=== PATIENT | female | born 1955 | race Caucasian/White ===

== ENCOUNTER → 2019-12-30 | Emergency (ER) | payer MEDICAID, OTHER ==
[~2019-12-30] VITALS: Ht 167.6 cm; Wt 59.0 kg
[~2019-12-30] MED LIST: MORPHINE SULF INJ 2 MG/ML SYRINGE 1ML IV ONE; ONDANSETRON HCL 4 MG/2 ML VIAL IV ONE
[2019-12-30 17:04] LABS: Basophils # (auto) 0.1 10 ^3/uL (0-0.2); Basophils % (auto) 0.5 % (0.0-2.0); Eosinophils # (auto) 0.1 10 ^3/uL (0-0.8); Hematocrit 41.5 % (36.0-46.0); Hemoglobin 13.8 g/dL (12.2-16.2); Lymphocytes # (auto) 1.1 10 ^3/uL (0.4-5.4); Lymphocytes % (auto) 10.9 % (10.0-50.0); Mean Corpuscular Hemoglobin 31.5 pg (28.0-32.0); Mean Corpuscular Hgb Conc. 33.3 g/dL (32.0-36.0); Mean Corpuscular Volume 94.7 fL (80.0-100.0); Monocytes # (auto) 0.5 10 ^3/uL (0-1.3); Monocytes % (auto) 4.9 % (0.0-12.0); Neutrophils # (auto) 8.2 10 ^3/uL (1.6-8.6); Neutrophils % (auto) 82.7 % (37.0-80.0); Platelet Count (auto) 212 10^3/uL (140-450); Red Blood Cells 4.39 10^6/uL (4.0-5.20); White Blood Cell 9.9 10^3/uL (4.4-10.8)
[2019-12-30 17:22] LABS: Alanine Aminotransferase 54 U/L (13-56); Albumin 3.2 g/dL (3.4-5.0); Amylase 30 U/L (25-115); Anion Gap 12 (5-15); Aspartate Aminotransferase 65 U/L (15-37); Blood Urea Nitrogen 16 mg/dL (7-18); Calcium 8.6 mg/dL (8.5-10.1); Carbon Dioxide 22 mmol/L (21-32); Chloride 105 mmol/L (98-107); GFR African American 93 mL/min; GFR Non-African American 77 mL/min; Glucose 147 mg/dL (74-106); Lipase 54 U/L (73-393); Magnesium 1.1 mg/dL (1.6-2.6); Potassium 3.9 mmol/L (3.5-5.1); Sodium 139 mmol/L (136-145)
[2019-12-30 17:28] LABS: Alkaline Phosphatase 106 U/L (45-117); Bilirubin, Total 0.7 mg/dL (0.2-1.0); Total Protein 7.2 g/dL (6.4-8.2)
[2019-12-30 19:02] LABS: Urine Bacteria NONE SEEN /hpf (None Seen); Urine Blood Negative /uL (Negative); Urine Mucus FEW (None Seen); Urine Specific Gravity 1.032 (1.001-1.035); Urine WBC <1 /hpf (0 - 5)
[2019-12-30 20:00] VITALS: BP 112/62
== END | disposition home or self-care (01) ==
LOC: EDUNIT# 16:09 → ER 16:09 → EDBD 16:09
DX: K56.7 Ileus, unspecified (principal); E11.9 Type 2 diabetes mellitus without complications; E78.5 Hyperlipidemia, unspecified; E07.9 Disorder of thyroid, unspecified; Z88.1 Allergy status to other antibiotic agents; Z88.8 Allergy status to other drugs, medicaments and biological substances
CPT/HCPCS: 36415; 74176; 80053; 81001; 82150; 83690; 83735; 84484; 85025; 93005; 96374; 96375; 99285; J2270; J2405

== ENCOUNTER 2023-11-02 12:56 | Emergency (ER) | payer MEDICAID ==
[~2023-11-02] VITALS: Ht 157.5 cm; Wt 63.6 kg
[2023-11-02 13:08] VITALS: BP 133/78; PULSE 88; RESP 18; O2SAT 97
== END 2023-11-02 15:41 | disposition left against medical advice (07) ==
LOC: ER 12:56 → EDUNIT# 12:56 → EDBD 12:56 → ER 14:39
DX: G40.909 Epilepsy, unspecified, not intractable, without status epilepticus (principal); Z53.21 Procedure and treatment not carried out due to patient leaving prior to being seen by health care provider
CPT/HCPCS: 93005

== ENCOUNTER 2024-08-05 21:48 | Emergency (ER) | payer OTHER, MEDICAID ==
[~2024-08-05] VITALS: Ht 165.1 cm; Wt 55.2 kg
--- NOTE | 2024-08-05 22:16 | ED.PDOC ---
GI ASSESSMENT HPI Comments 69y F who presents to the ED for chief complaints of pain, nausea and vomiting. Pt states she has been having nausea and vomiting for the past 2 days. Pt states she had surgery on L shoulder 2 days prior and states after being discharged, she has been having increasing nausea and vomiting since with associated generalized pain by her L shoulder. Pt states she was given pain medications after surgery but no medications for her nausea or vomiting. Pt in the ED, otherwise denies any other symptoms. Pt denies any other symptoms at this time. Patient has a multitude of comorbidities including metastatic cancer concerns and metabolic issues. Chief Complaint: Abdominal Pain Time Seen by MD: 22:15 Primary Care Provider: STEPHANI Reviewed Notes: Nurses Notes, Medications, Allergies Allergies: Coded Allergies: Ciprofloxacin (Verified Allergy, Mild, 12/30/19) Diazepam (Verified Allergy, Mild, 12/30/19) Information Source: Patient Mode of Arrival: Ambulatory Brought in by: self Timing: Days Duration: Since onset Prehospital treatment: Pain Meds Quality: Aching Vomitus: Bilious, Food Particles, Soft, Watery Severity: Moderate Recent: Other (Recent left shoulder surgery) Recent Hx of: None Associated sign and symptoms: Nausea, Vomiting Past Medical History PAST MEDICAL HISTORY: Anxiety, DM, High Lipids, Seizures, Thyroid Surgical History: Cholecystectomy, Hysterectomy, Thyroidectomy Surgical History (Other): Recent left shoulder intervention [employer] History: No Pertinent [employer] History Family History Family History: Unknown Social History Smoker: Non-Smoker Alcohol: Denies ETOH Use Drugs: Denies Drug Use Lives In: Home Constitutional: denies: chills, diaphoresis, fatigue, fever, malaise, sweats, weakness, others EENTM: denies: blurred vision, double vision, ear bleeding, ear discharge, ear drainage, ear pain, ear ringing, eye pain, eye redness, hearing loss, mouth pain, mouth swelling, nasal discharge, nose bleeding, nose congestion, nose pain, photophobia, tearing, throat pain, throat swelling, voice changes, others Respiratory: denies: cough, hemoptysis, orthopnea, SOB at rest, shortness of breath, SOB with excertion, stridor, wheezing, others Cardiovascular: denies: chest pain, dizzy spells, diaphoresis, Dyspnea on exertion, edema, irregular heart beat, left arm pain, lightheadedness, palpitations, PND, syncope, others Gastrointestinal: reports: nausea, vomiting; denies: abdomen distended, abdominal pain, blood streaked bowels, constipated, diarrhea, dysphagia, diff iculty swallowing, hematemesis, melena, poor appetite, poor fluid intake, rectal bleeding, rectal pain, others Genitourinary: denies: abnormal vagina bleeding, burning, dyspareunia, dysuria, flank pain, frequency, hematuria, incontinence, pain, , vagina discharge, urgency, others Neurological: denies: dizziness, fainting, headache, left sided numbness, left sided weakness, numbness, paresthesia, pre-existing deficit, right sided numbness, right sided weakness, seizure, speech problems, tingling, tremors, weakness, others Musculoskeletal: reports: others (Diffuse left shoulder pain); denies: back pain, gout, joint pain, joint swelling, muscle pain, muscle stiffness, neck pain Integumetry: denies: bruises, change in color, change in hair/nails, dryness, laceration, lesions, lumps, rash, wounds, others Allergic/Immunocompromised: denies: Difficulty Healing, Frequent Infections, Hives, Itching, others Hematologic/Lymphatic: denies: anemia, blood clots, easy bleeding, easy bruising, swollen glands, others Endocrine: denies: excessive hunger, excessive sweating, excessive thirst, excessive urination, flushing, intolerance to cold, intolerance to heat, unexplained weight gain, unexplained weight loss, others Psychiatric: denies: anxiety, bipolar disorder, depression, hopeless, panic disorder, schizophrenia, sleepless, suicidal, others All Other Systems: Reviewed and Negative Physical Exam General Appearance: Moderate Distress (Due to pain and nausea concerns), Normal HEENT: Normal ENT Inspection, Pharynx Normal, TMs Normal Neck: Full Range of Motion, Non-Tender, Normal, Normal Inspection Respiratory: Chest Non-Tender, Lungs Clear, No Accessory Muscle Use, No Respiratory Distress, Normal Breath Sounds Cardiovascular: No Edema, No JVD, No Murmur, No Gallop, Normal Peripheral Pulses, Regular Rate/Rhythm Breast Exam: Deferred Gastrointestinal: No Organomegaly, Non Tender, No Pulsatile Mass, Normal Bowel Sounds, Soft Genitalia: Deferred Pelvic: Deferred Rectal: Deferred Extremities: Other (Patient displays postsurgical dressing throughout the anterior aspect of the left shoulder. Patient states she had some partial hardware removal.) Neurologic: Alert, No Motor Deficits, Normal Affect, Normal Mood, No Sensory Deficits Cerebellar Function: Normal Reflexes: Normal Skin: Dry, Normal Color, Warm Lymphatic: No Adenopathy Was a procedure done? Was a procedure done?: No GI differential Dx Differential Diagnosis: Gastritis/PUD, Dehydration, Food Poisoning, Bacterial, Viral, Other (Postoperative pain) X-Ray, Labs, Meds, VS Vital Signs Date Time Temp Pulse Resp B/P (MAP) Pulse Ox O2 Delivery O2 Flow Rate FiO2 08/05/24 23:25 55 18 108/54 08/05/24 22:56 61 18 113/55 08/05/24 22:56 97.9 61 18 113/55 (74) 96 97.9 08/05/24 22:56 61 18 96 Room Air 08/05/24 22:00 98.0 63 18 105/51 (69) 98 98.0 Current Medications Medications (Trade) Dose Ordered Sig/Kassidy Route Start Time Stop Time Status Last Admin Ondansetron HCl (Zofran Po) 4 mg ONCE ONCE PO 08/05/24 22:15 08/05/24 22:16 DC 08/05/24 22:55 Metoclopramide HCl (Reglan Injection) 10 mg ONCE ONCE IM 08/05/24 22:15 08/05/24 22:16 DC 08/05/24 22:55 Hydromorphone HCl (Dilaudid Injection) 0.5 mg ONCE ONCE IM 08/05/24 22:15 08/05/24 22:16 DC 08/05/24 22:56 X-Ray, Labs, Meds, VS Comment Patient responded well to medication dispensed to the ED. Advised patient that she needs to follow up with her surgeon for discussions related to management of her postoperative pain concerns that in turn, are leading to nausea events. Time of 1ST Reevaluation: 00:06 Reevaluation 1ST: Improved Consultation: PCP, Surgery Patient Education/Counseling: Diagnosis, Treatment Family Education/Counseling: Diagnosis, Treatment, No Family Present Departure 1 Departure Time of Disposition: 00:06 Impression: Primary Impression: Postoperative pain Additional Impression: Nausea and vomiting in adult Disposition: 01 HOME / SELF CARE / HOMELESS Condition: Stable Additional Instructions: Advise utilizing medication as needed for symptomatic relief in additionally, patient should follow up with her primary care provider and surgeon for continued evaluation of postoperative pain concerns. e-Prescriptions Hydrocodone-Acetaminophen (Hydrocodone Bitartrate/AC 10-325 mg) 1 Tab Tab 1 TAB PO Q8HP PRN, #15 TAB Prov: HORTENCIA GODFREY PAC 08/06/24 Metoclopramide Hcl (Reglan) 10 Mg Tab 10 MG PO Q8HP PRN, #15 TAB Prov: HORTENCIA GODFREY PAC 08/06/24 Ondansetron Odt 4MG Tab (ZOFRAN PO) 4 Mg Tb 4 MG PO Q6HP PRN, #20 TAB ODT TAB-DISSOLVE IN MOUTH, THEN SWALLOW Prov: HORTENCIA GODFREY PAC 08/06/24 Discharged With: Self, Friend Critical Care Note Critical Care Time?: No Stability Stability form required: No Heart Score Heart Score: Heart Score Response (Comments) Value History N/A 0 EKG N/A 0 Age N/A 0 Risk Factors N/A 0 Troponin N/A 0 Total 0 I personally scribed for HORTENCIA GODFREY PAC ([email or web address]) on 08/05/24 at 22:16. Electronically submitted by Antolin Mott ([email or web address]). HORTENCIA GODFREY PAC Aug 05, 2024 22:16
[2024-08-05] MEDS: ONDANSETRON ODT 4 MG TAB PO ONE (22:55)
[2024-08-05] MEDS: METOCLOPRAMIDE HCL 5MG/ml INJ 2ml VIAL IM ONE (22:55)
[2024-08-05 22:56] VITALS: TEMP 97.9; O2SAT 96
[2024-08-05] MEDS: HYDROmorphone HCL 2 MG/ML VL/or syr IM ONE (22:56)
[2024-08-05 23:25] VITALS: BP 108/54; PULSE 55; RESP 18
[2024-08-06] MEDS ORDERED: METO-281 PO (00:08)
[2024-08-06] MEDS ORDERED: ZOFR4T PO (00:08)
[2024-08-06] MEDS ORDERED: HYDR-4798 PO (00:08)
== END 2024-08-06 00:23 | disposition home or self-care (01) ==
LOC: ER 21:48
DX: G89.18 Other acute postprocedural pain (principal); M25.512 Pain in left shoulder; R11.2 Nausea with vomiting, unspecified; E11.9 Type 2 diabetes mellitus without complications; F41.9 Anxiety disorder, unspecified; E78.5 Hyperlipidemia, unspecified; Z86.69 Personal history of other diseases of the nervous system and sense organs; Z90.49 Acquired absence of other specified parts of digestive tract; Z90.710 Acquired absence of both cervix and uterus; Z98.890 Other specified postprocedural states; Z90.89 Acquired absence of other organs; Z88.1 Allergy status to other antibiotic agents; Z88.8 Allergy status to other drugs, medicaments and biological substances
CPT/HCPCS: 96372; 99284; J1171; J2765; Q0162